=== PATIENT | male | born 1935 | race African-American/Black ===

== ENCOUNTER 2020-02-04 16:08 | Emergency (ER) | payer OTHER, MEDICARE ==
[2020-02-04 16:47] LABS: Hemoglobin 10.1 g/dL (14.0-18.0); Mean Corpuscular HGB CONC 32.7 g/dL (32.0-36.0); Mean Corpuscular Hemoglobin 35.1 pg (27.0-31.0); Mean Platelet Volume 7.5 fL (7.4-10.4); Platelet Count 127 thou/uL (130-400); RBC Distribution Width 12.1 % (11.5-14.5); Red Blood Cell (RBC) Count 2.87 mill/uL (4.70-6.10); White Blood Cell (WBC) Count 5.2 thou/uL (4.8-10.8)
[2020-02-04 16:48] LABS: #Eosinphils 0.2 thou/uL (0.0-0.7); #Lymphocytes 1.5 thou/uL (1.20-3.40); #Monocytes 0.4 thou/uL (0.11-0.59); %Basophils 0.6 % (0.0-1.0); %Lymphocytes 29.4 % (21.0-51.0); %Monocytes 7.8 % (0.0-10.0); %Neutrophils 58.1 % (42.0-75.0)
[2020-02-04 16:50] LABS: INR-International Normal Ratio 1.2; PTT 27.6 sec (22.9-36.1); Prothrombin Time 15.6 sec (12.0-14.7)
[2020-02-04 17:04] LABS: ALT (SGPT) 7 U/L (8-55); AST (SGOT) 17 U/L (5-34); Alkaline Phosphatase 46 U/L (40-110); Anion Gap 14 mmol/L (10-20); BUN (Urea Nitrogen) 9 mg/dL (8.4-25.7); Bilirubin, Total 0.5 mg/dL (0.2-1.2); Calc. Creatinine Clearance 0 mL/min (70-130); Calcium 8.7 mg/dL (7.8-10.44); Carbon Dioxide 23 mmol/L (23-31); Chloride 107 mmol/L (98-107); Globulin 4.2 g/dL (2.4-3.5); Glucose 117 mg/dL (83-110); Potassium 3.6 mmol/L (3.5-5.1); Protein, Total 7.2 g/dL (5.8-8.1); Sodium 140 mmol/L (136-145)
--- NOTE | 2020-02-04 17:06 | CT ---
Exam: Head CT without contrast HISTORY: Syncope. Collapse. COMPARISON: 08/04/2016 FINDINGS: Hemorrhage: No intraparenchymal hemorrhage or extra-axial hematoma. Brain parenchyma: Cortical thomas-white matter differentiation is preserved. No mass effect or midline shift. Basilar cisterns are patent.White matter hypodensities due to chronic small vessel ischemic change. Stable hyperdensities involving the midbrain and rodolfo likely representing calcification. Ventricular system: Ventricles and sulci are patent and symmetric. Calvarium: Intact. Sinuses and mastoid air cells: Adequate aeration. IMPRESSION: 1. No intracranial post traumatic sequelae. 2. Age-appropriate atrophy. Redemonstration of chronic small vessel ischemic changes of the white mat ter.
[2020-02-04 17:10] LABS: MDiff Complete? YES; Macrocytosis SLIGHT = 6-15 cells (100X) (0-5/hpf); Platelet Morphology Comment Appears Adequate
[2020-02-04 18:42] LABS: Bacteria/HPF None Seen HPF (None Seen); Bilirubin Negative (Negative); Blood, Urine Negative (Negative); Clarity Clear (Clear); Glucose, Urine (Dipstick) Normal (Negative); Ketone, Urine Negative (Negative); Leukocyte 75 Leu/uL (Negative); Nitrite Negative (Negative); Protein, Urine (Dipstick) 20 mg/dL (Neg-Trace); RBC/HPF None Seen HPF (0-3); Specific Gravity, Urine 1.012 (1.002-1.036); Squamous Epithelial 0-3 HPF (0-3); WBC/HPF 21-50 HPF (0-3)
[2020-02-04 22:38] LABS: SARS-CoV-2 NAA Rapid Test Not Detected (NotDetected)
== END 2020-02-04 23:16 | disposition short-term general hospital (02) ==
LOC: ERS 16:08
DX: I44.1 Atrioventricular block, second degree (principal); E11.9 Type 2 diabetes mellitus without complications; I10 Essential (primary) hypertension; Z87.891 Personal history of nicotine dependence; Z79.899 Other long term (current) drug therapy
CPT/HCPCS: 70450; 80053; 81003; 81015; 83605; 83880; 84484; 85025; 85610; 85730; 93005; 94760; U0002

== ENCOUNTER 2020-02-06 22:33 | Emergency (ER) | payer OTHER, MEDICARE ==
[2020-02-06 23:26] LABS: #Eosinphils 0.1 thou/uL (0.0-0.7); #Lymphocytes 0.9 thou/uL (1.20-3.40); #Monocytes 0.4 thou/uL (0.11-0.59); #Neutrophils 3.7 thou/uL (1.40-6.50); %Basophils 0.6 % (0.0-1.0); %Eosinophils 1.5 % (0.0-10.0); %Lymphocytes 18.2 % (21.0-51.0); %Monocytes 8.2 % (0.0-10.0); %Neutrophils 71.6 % (42.0-75.0); Hemoglobin 11.5 g/dL (14.0-18.0); Mean Corpuscular HGB CONC 32.6 g/dL (32.0-36.0); Mean Corpuscular Hemoglobin 34.5 pg (27.0-31.0); Mean Platelet Volume 7.1 fL (7.4-10.4); Platelet Count 156 thou/uL (130-400); RBC Distribution Width 12.3 % (11.5-14.5); Red Blood Cell (RBC) Count 3.33 mill/uL (4.70-6.10); White Blood Cell (WBC) Count 5.2 thou/uL (4.8-10.8)
[2020-02-06 23:44] LABS: ALT (SGPT) 7 U/L (8-55); AST (SGOT) 22 U/L (5-34); Albumin 3.6 g/dL (3.4-4.8); Alkaline Phosphatase 53 U/L (40-110); Anion Gap 15 mmol/L (10-20); BUN (Urea Nitrogen) 14 mg/dL (8.4-25.7); Bilirubin, Total 0.4 mg/dL (0.2-1.2); Calc. Creatinine Clearance 0 mL/min (70-130); Calcium 8.9 mg/dL (7.8-10.44); Carbon Dioxide 24 mmol/L (23-31); Chloride 105 mmol/L (98-107); Globulin 4.7 g/dL (2.4-3.5); Glucose 133 mg/dL (83-110); Potassium 3.9 mmol/L (3.5-5.1); Protein, Total 8.3 g/dL (5.8-8.1); Sodium 140 mmol/L (136-145)
== END 2020-02-07 04:48 ==
LOC: ERS 22:33
DX: R55 Syncope and collapse (principal); R00.1 Bradycardia, unspecified; I95.9 Hypotension, unspecified; E11.9 Type 2 diabetes mellitus without complications; I10 Essential (primary) hypertension; E78.5 Hyperlipidemia, unspecified; Z87.891 Personal history of nicotine dependence; Z79.899 Other long term (current) drug therapy
CPT/HCPCS: 80053; 83880; 84484; 85025; 93005